=== PATIENT | female | born 1980 | race Caucasian/White ===

== ENCOUNTER 2016-11-17 07:05 | Emergency (ER) | payer BC ==
[~2016-11-17] VITALS: Ht 162.6 cm; Wt 89.0 kg
[2016-11-17 07:11] VITALS: Ht 162.6 cm; Wt 89.0 kg
[2016-11-17] MEDS ORDERED: KETOROLAC 30 MG INJ IM STA (07:27)
[2016-11-17 07:36] LABS: URINE BLOOD (Dip) POC Negative (NEGATIVE)
--- NOTE | 2016-11-17 08:21 | RADRPT ---
PROCEDURE: CT Abdomen and Pelvis without contrast. CLINICAL INDICATION: Back and left flank pain TECHNIQUE: CT of the abdomen and pelvis was performed on a multi-detector scanner without IV contr ast. Coronal and sagittal images were reformatted from the axial data set. One or more of the foll owing dose reduction techniques were used: automated exposure control, adjustment of the mA and/or k V according to patient size, use of iterative reconstruction technique. CTDI = 22.2 mGy. DLP = 1276 .62 mGy-cm. COMPARISON: CT, 04/16/2015 FINDINGS: The lung bases are clear. The heart size is normal, without pericardial effusion. Gallbladder is s urgically absent. Liver, biliary tree, pancreas, spleen, adrenal glands and kidneys are unremarkable . No urolithiasis or obstructive uropathy is identified. The stomach is grossly unremarkable. The aorta is of normal caliber. There is no retroperitoneal lymphadenopathy. The kojo hepatis reg ion is clear. No bowel obstruction, free intraperitoneal air or abscess is identified. The appendix is well visual ized and normal. There is no diverticulosis, diverticulitis or colitis. Urinary bladder is grossly u nremarkable. Uterus is surgically absent. No pelvic mass, free fluid or lymphadenopathy is identifie d. The surrounding osseous structures are unremarkable. No osteolytic or osteoblastic lesion is detect ed. IMPRESSION: 1. Gallbladder and uterus are surgically absent. 2. No urolithiasis or obstructive uropathy is seen. 3. No mass, lymphadenopathy, or focal acute inflammatory process is identified. RPTAT: AAOO .Jatin lFynn MD, Date Time Electronically viewed and signed by .Jatin Flynn MD, MD on 11/17/2016 08:21 .R/
[2016-11-17] MEDS ORDERED: IBUP-1542 PO (09:00)
--- NOTE | 2016-11-17 10:01 | ERD ---
ER Documentation Chief Complaint Date/Time DATE: 11/17/16 TIME: 09:59 Chief Complaint back pain HPI Patient is a 28-year-old female with no medical problems who presents with back pain. The patient's back pain started yesterday. The patient was vomiting and said that she was vomiting green. She tried Gatorade. She has bilateral flank pain. She has no fevers. The pain is sharp in nature. She has no blood in her urine and no urinary symptoms. Upon review of old medical records this is the patient's seventh visit to the ER since 2011. ROS All systems reviewed and are negative except as per history of present illness. Medications Home Meds Active Scripts Ibuprofen* (Motrin*) 600 Mg Tab, 600 MG PO Q6H Y for PAIN AND OR ELEVATED TEMP, #30 TAB Prov:MAEVE MANNING MD 11/17/16 Allergies Allergies: Coded Allergies: Penicillins (Verified Allergy, 03/06/13) PMhx/Soc Medical and Surgical Hx: pt denies Medical Hx History of Surgery: No Anesthesia Reaction: No Hx Neurological Disorder: No Hx Respiratory Disorders: No Hx Cardiac Disorders: No Hx Psychiatric Problems: No Hx Miscellaneous Medical Probl: No Hx Alcohol Use: No Hx Substance Use: No Hx Tobacco Use: No Smoking Status: Never smoker FmHx Family History: No diabetes Physical Exam Vitals Vital Signs Date Time Temp Pulse Resp B/P Pulse Ox O2 Delivery O2 Flow Rate FiO2 11/17/16 07:11 97.6 76 18 116/59 99 Physical Exam Const: Moderate distress secondary to back pain Head: Atraumatic Eyes: Normal Conjunctiva ENT: Normal External Ears, Nose and Mouth. Neck: Full range of motion..~ No meningismus. Resp: Clear to auscultation bilaterally Cardio: Regular rate and rhythm, no murmurs Abd: Soft, non tender, non distended. Normal bowel sounds Skin: No petechiae or rashes Back: Bilateral lower back pain with palpation, no step-off or deformity noted of the spine Ext: No cyanosis, or edema Neur: Awake and alert Psych: Normal Mood and Affect Results 24 hrs Laboratory Tests Test 11/17/16 07:43 Bedside Urine pH (LAB) 6.0 Bedside Urine Protein (LAB) Trace Bedside Urine Glucose (UA) Negative Bedside Urine Ketones (LAB) Trace Bedside Urine Blood Negative Bedside Urine Nitrite (LAB) Negative Bedside Urine Leukocyte Esterase (L Trace Current Medications Medications (Trade) Dose Ordered Sig/Andrzej Route PRN Reason Start Time Stop Time Status Last Admin Dose Admin Ketorolac Tromethamine (Toradol) 30 mg ONCE STAT IM 11/17/16 07:27 11/17/16 07:29 DC 11/17/16 07:33 Procedures/MDM CT abdomen pelvis shows no kidney stone or signs of surgical process per radiology. Urine dip and urine is negative. Patient is a 36-year-old female with no medical problems who presents with flank pain. Urine shows no sign of infection or pyelonephritis. test is negative and I doubt or ectopic . CT abdomen pelvis shows no signs of bowel obstruction or kidney stone or other surgical process. I believe outpatient management is appropriate. The patient can take ibuprofen as needed for pain and inflammation. She should follow-up with her primary doctor within 24-48 hours for reevaluation. She was given copies of her CT scan results prior to discharge. Departure Diagnosis: Primary Impression: Back pain Back pain location: low back pain Chronicity: acute Back pain laterality: bilateral Sciatica presence: without sciatica Qualified Code: M54.5 - Acute bilateral low back pain without sciatica Additional Impression: Flank pain Condition: Fair Patient Instructions: Flank Pain, Uncertain Cause Additional Instructions: Call your primary care doctor TOMORROW for an appointment during the next 1-2 days.See the doctor sooner or return here if your condition worsens before your appointment time. MAEVE MANNING MD Nov 17, 2016 10:01
== END 2016-11-17 09:53 | disposition home or self-care (01) ==
LOC: FTE 07:05
DX: M54.5 Low back pain (principal); R10.9 Unspecified abdominal pain
CPT/HCPCS: 74176; 81003; 96372; 99285; J1885